=== PATIENT | female | born 1970 | race Caucasian/White ===

== ENCOUNTER 2022-06-23 12:52 | Outpatient (AMB) | payer OTHER, SELFPAY ==
--- NOTE | 2022-06-23 13:19 | A.OFFPC_ITS ---
Vital Signs 06/23/22 13:21 Height 5 ft 4 in Weight 140 lb 4 oz BMI 24.0 BP 112/68 Blood Pressure Location Rt brachial Position Sitting Pulse 70 Pulse Source Pulse Oximeter Intake Visit Reasons: Annual Physicial Intake Note: Pt is here for her annual physical exam. Allergies No Known Allergies Allergy (Verified 06/27/23 13:18) Medication List - Last Reconciled 06/23/22 by Milly Burk MD No Known Home Meds Tobacco use date assessed: 06/23/22 HPI Annual Physicial HPI Details 51 year old lady , new to practice , he re for a physical exam , Has no known medical history PFSH Medical History Colon cancer screening Post-COVID chronic cough Recurrent unproductive cough Former cigarette smoker Immunization refused Surgical History No pertinent past surgical history Family History Father Lung cancer Cancer of kidney Mother Cancer of kidney Coronary artery disease S/P CABG x 4 HTN (hypertension) Hyperlipidemia COPD (chronic obstructive pulmonary disease) Substance use disorder Paternal Aunt History of breast cancer Social History Housing: House Alcohol intake: current Alcohol intake frequency: a few times a month Patient Tobacco Use Status: Former Tobacco user Tobacco use type: Cigarette Cigarette Packs Per Day: 1 Years Smoked: 12 e-Cigarette/Vaping Use: Never Used Current occupational status: unemployed Sexual orientation: Straight/Heterosexual Gender identity: Female Cognitive needs: No Hearing needs: No Vision needs: Yes Female Reproductive History Menstrual Date of last menstrual period: 06/16/21 Menopause type: natural Questionnaire PHQ-9 Over the last 2 weeks, how often have you been bothered by any of the following problems? 1. Little interest or pleasure in doing things: not at all 2. Feeling down, depressed, or hopeless: not at all 3. Trouble falling or staying asleep, or sleeping too much: not at all 4. Feeling tired or having little energy: not at all 5. Poor appetite or overeating: not at all 6. Feeling bad about yourself - or that you are a failure or have let yourself or your family down: not at all 7. Trouble concentrating on things, such as reading the newspaper or watching television: not at all 8. Moving or speaking so slowly that other people could have noticed. Or the opposite - being so fidgety or restless that you have been moving around a lot more than usual: not at all 9. Thoughts that you would be better off or of hurting yourself in some way: not at all Total score: 0 Depression Screening Interpretation: Negative 78868 - PHQ-9 Billing: Yes Source: Developed by Drs. Roel Carmona, Mara Hernandez, Isac Hanson and colleagues, with an educational dionne from [employer]. Thrive Questionnaire Declines Thrive assessment: No Date Thrive assessed: 06/23/22 I am a: Patient What is your living situation today?: I have a steady place to live Within the past 12 months, did the food you bought not last and you didn't have the money to get more?: Never true Within the past 12 months, did you worry whether your food would run out before you got money to buy more?: Never true Do you have trouble paying for medicines?: No Do you have trouble getting transportation to medical appointments?: No Do you have trouble paying your heating and electricity bill?: Yes Do you have trouble taking care of your child, family member or friend?: No Do you have trouble with day-to-day activities such as bathing, preparing meals, shopping, managing finances, etc.?: No Are you currently unemployed and looking for a job?: Yes Are you interested in more education?: Yes AUDIT C Alcohol Use Questionnaire (AUDIT-C) 1. How often do you have a drink containing alcohol?: Monthly or less 2. How many drinks containing alcohol do you have on a typical day when you are drinking?: 1 or 2 3. How often do you have six or more drinks on one occasion?: Never Total Score: 1 Score Reviewed/Action Taken: Yes JEFFERSON-7 AMB Questionnaire JEFFERSON-7 Date JEFFERSON - 7 assessed: 06/23/22 Feeling nervous, anxious, or on edge: 0 = Not at all Not being able to stop or control worryin = Not at all Worrying too much about different things: 0 = Not at all Trouble relaxin = Not at all Being so restless that it is hard to sit still: 0 = Not at all Becoming easily annoyed or irritable: 0 = Not at all Feeling afraid as if something awful might happen: 0 = Not at all Total JEFFERSON-7 score (0-4 normal; 5-9 mild; 10-14 moderate; 15-21 severe): 0 Source: Developed by Drs. Roel Carmona, Mara Hernandez, Isac Hanson and colleagues, with an educational dionne from [employer]. JEFFERSON-7 Assessment Billing JEFFERSON-7 Assessment Tool: JEFFERSON-7 Assessment 57458 Review of Systems Const Denies body aches, Denies fatigue, Denies fever(s), Denies headache(s) and Denies weakness Eyes Denies change in vision, Denies eye discharge and Denies itchy eyes ENT Denies dizziness, Denies headache(s), Denies nasal congestion, Denies nasal discharge and Denies sore throat Card Denies chest pain, Denies lightheadedness, Denies palpitations and Denies dyspnea Resp Denies chest congestion, Denies cough, Denies dyspnea and Denies wheezing GI Denies abdominal pain, Denies change in bowel habits and Denies heartburn Denies hematuria, Denies urinary frequency, Denies dysuria and Denies urinary urgency Skin/Breast Denies breast pain, Denies breast mass, Denies lesions and Denies rash Neuro Denies dizziness, Denies headache(s) and Denies weakness Endo Denies fatigue, Denies polydipsia, Denies polyuria and Denies palpitations Rip/Lymph Denies easy bruising Aller/Immun Denies itchy eyes, Denies seasonal rhinorrhea and Denies wheezing Physical exam (Primary Care) Vital Signs: Last Vital Signs Pulse 70 06/23/22 13:21 BP 112/68 06/23/22 13:21 BMI result Body Mass Index 24.0 Tobacco/Smoking Status: Tobacco use Status Tobacco use date assessed 06/23/22 06/23/22 13:25 Patient Tobacco Use Status Former Tobacco user 06/23/22 14:18 Tobacco use type Cigarette 06/23/22 14:18 e-Cigarette/Vaping Use Never Used 06/23/22 14:18 PHQ-9: PHQ-9 Score PHQ-9: Total score 0 05/20/25 00:20 Depression Screening Interpretation: Negative Thrive Assessment: Date of Thrive Assessment Date Thrive assessed 06/23/22 06/23/22 13:26 Coding Level of Care Code Admin Sign Off/No Billing Diagnoses Former cigarette smoker Z87.891 Recurrent unproductive cough R05.8 Post-COVID chronic cough R05.3; U09.9 Advanced directives, counseling/discussion Z71.89 Adult general medical exam Z00.00 Cervical cancer screening Z12.4 Hx of abnormal cervical Pap smear Z87.42 Colon cancer screening Z12.11 Immunization refused Z28.21 Additional Codes JEFFERSON-7 Assessment Billing - JEFFERSON-7 Assessment Tool: JEFFERSON-7 Assessment [id number] ([id number])
[2022-06-23 13:21] VITALS: BP 112/68; PULSE 70; BMI 24.0
== END 2022-06-23 14:37 | disposition home or self-care (01) ==
LOC: HO.HMGC 12:52
PROVIDERS: PCP Internal Medicine; Visit Provider Internal Medicine
DX: Z87.891 Personal history of nicotine dependence (principal); R05.8 Other specified cough; R05.3 Chronic cough; U09.9 Post COVID-19 condition, unspecified; Z71.89 Other specified counseling; Z00.00 Encounter for general adult medical examination without abnormal findings; Z12.4 Encounter for screening for malignant neoplasm of cervix; Z87.42 Personal history of other diseases of the female genital tract; Z12.11 Encounter for screening for malignant neoplasm of colon; Z28.21 Immunization not carried out because of patient refusal
CPT/HCPCS: 99499

== ENCOUNTER 2022-12-28 14:43 | Outpatient (AMB) | payer OTHER, SELFPAY ==
--- NOTE | 2022-12-28 14:46 | MHC.OFFVIS ---
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 Scribed for PEARL Lopez by Luh Hanson certified medical technician assistant, on 12/28/2022 at 3:08 pm EST. Broadcast Maintenance Engineer: Broadcast Maintenance Engineer Present (Selene) Allergies No Known Allergies Allergy (Verified 12/28/22 14:47) HPI HPI Comments History of Present Illness Details She is a new patient postmenopausal woman presenting for annual exam. 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 Patient admits she tries to eat a healthy diet including Calcium and Vitamin D. She stays active with work. Reports weight gain due to ceasing of smoking. Currently not sexually active. Reports pain/dryness during last sexual encounter with . No menses over a year ago. Denies vaginal itching and irritation. Denies family hx of colon and ovarian cancer. Last pap smear 12+ years ago per pt. Reports not having a mammogram per pt. Not UTD on colonoscopy. [facility] Medical History Colon cancer screening Post-COVID chronic cough Recurrent unproductive cough Former cigarette smoker Immunization refused Surgical History No pertinent past surgical history Family History Father Lung cancer Cancer of kidney Mother Cancer of kidney Coronary artery disease S/P CABG x 4 HTN (hypertension) Hyperlipidemia COPD (chronic obstructive pulmonary disease) Paternal Aunt History of breast cancer Social History Housing: House Alcohol intake: current Alcohol intake frequency: a few times a month Patient Tobacco Use Status: Former Tobacco user Quit Date: 04/2019 Tobacco use type: Cigarette Cigarette Packs Per Day: 1 Years Smoked: 12 e-Cigarette/Vaping Use: Never Used Current occupational status: unemployed Sexual orientation: Straight/Heterosexual Gender identity: Female Cognitive needs: No Hearing needs: No Vision needs: Yes Female Reproductive History Menstrual Menopause type: natural Total pregnancies: 1 Ab spontaneous: 1 Physical Exam Vital Signs: Last Vital Signs BP 110/62 12/28/22 14:47 BMI result Body Mass Index 23.7 Const General: cooperative, healthy appearing, no acute distress, well developed and alert Orientation/consciousness: patient oriented x3 HEENT Head: Yes normal to inspection Eyes General: appearance normal, both eyes and all related structures Neck Neck: Yes normal visual inspection Thyroid: Thyroid normal Chest Chest palpation & inspection: normal inspection of the chest Breast/axilla inspection: normal inspection of the breasts (no puckering, dimpling, peau de orange, retraction, discharge, masses) Breast/axilla palpation: normal palpation of the breasts Resp Effort & Inspection: normal respiratory effort GI Inspection: Yes normal to inspection Palpation (GI): Soft to palpation (to palpation) Rectal Exam - Female: deferred General: Yes bladder normal to inspection External Female Exam: normal external appearance and normal appearance of the urethra Speculum Exam - Vagina: normal appearance of the vagina, normal palpation and vagina atrophic Speculum Exam - Cervix: normal appearance of the cervix and normal palpation Bimanual exam- vagina & uterus: normal palpation and normal palpation Bimanual Exam- Adnexa, other: normal adnexae and no masses Skin General skin exam: no rashes or lesions noted Neuro General: patient oriented x3 Cognition (Neuro): normal cognition Extrem General: Yes normal to inspection Psych Attitude: cooperative Thought process: Normal thought process present Assessment & Plan Assessment & Plan (1) Encounter for well woman exam: Code(s): Z01.419 - Encounter for gynecological examination (general) (routine) without abnormal findings Plan: Discussed: Current recommendations for pap smears per ASCCP guidelines. Breast awareness and periodic self breast exams. Encouraged yearly mammograms. Maintaining a healthy lifestyle including a well balanced diet including Calcium and Vitamin D and routine exercise. Encouraged patient to sign up for patient portal. Contact office with any PMB. All of her questions and concerns were addressed to the best of my ability. RTO in 1 year for AG. (2) Dyspareunia, female: Code(s): N94.10 - Unspecified dyspareunia Plan: Recommend Replens, [place] jelly, Astroglide or coconut oil for vaginal dryness. (3) Menopausal vaginal dryness: Code(s): N95.1 - Menopausal and female climacteric states Orders: Orders Pap Smear Today Z01.419 - Encounter for gynecological examination (general) (routine) without abnormal findings Coding Level of Care Code New Pt Prev Care 40-64y(11954) Diagnoses Encounter for well woman exam Z01.419 Dyspareunia, female N94.10 Menopausal vaginal dryness N95.1
[2022-12-28 14:47] VITALS: BP 110/62; BMI 23.7
== END 2022-12-28 15:26 | disposition home or self-care (01) ==
PROVIDERS: Visit Provider Advanced Practice Midwife
DX: Z01.419 Encounter for gynecological examination (general) (routine) without abnormal findings (principal); N94.10 Unspecified dyspareunia; N95.1 Menopausal and female climacteric states
CPT/HCPCS: 99386

== ENCOUNTER 2022-12-28 14:43 | Outpatient (REF) | payer OTHER, SELFPAY ==
[2023-01-01 03:34] LABS: HPV mRNA E6/E7 rflx Not Detected (Not Detected)
== END 2022-12-28 14:44 | disposition home or self-care (01) ==
LOC: HO.LNP 14:43
PROVIDERS: Visit Provider Advanced Practice Midwife
DX: Z01.419 Encounter for gynecological examination (general) (routine) without abnormal findings (principal); Z11.51 Encounter for screening for human papillomavirus (HPV)
CPT/HCPCS: 87624; 88142

== ENCOUNTER 2023-06-27 12:44 | Outpatient (AMB) | payer OTHER, SELFPAY ==
[2023-06-27 12:59] VITALS: BP 96/62; PULSE 67; O2SAT 97; BMI 23.9
--- NOTE | 2023-06-27 12:59 | A.OFFPC_ITS ---
Vital Signs 06/27/23 12:59 Height 5 ft 4 in Weight 139 lb BMI 23.9 BP 96/62 Blood Pressure Location Lt brachial Position Sitting Pulse 67 Pulse Source Pulse Oximeter Pulse Oximetry (%) 97 Oxygen Delivery Method Room Air Intake Visit Reasons: PE Intake Note: Pt is here today for PE. Allergies No Known Allergies Allergy (Verified 06/27/23 13:18) Medication List - Last Reconciled 06/27/23 by Gretel Marsh MD No Known Home Meds Tobacco use date assessed: 06/27/23 Dental Screening Dental Screen Date: 06/27/23 Did you have a dental visit in the last 12 months?: Yes Did you have a dental problem in the last 6 months where you did not have access to dental care?: No Was dental information given to patient?: Patient has dentist HPI PE HPI Details Pt presents for PE. Pt c/o persistent cough with white sputum worse at night after tested positive for Covid 3 weeks ago. Pt has been using Albuterol inhaler before night with same relief. She denies pleurisy, fever, night sweats. Pt had similar symptoms last year. COUNT INCLUDES [facility] Medical History Colon cancer screening Post-COVID chronic cough Recurrent unproductive cough Former cigarette smoker Immunization refused Surgical History No pertinent past surgical history Family History Father Lung cancer Cancer of kidney Mother Cancer of kidney Coronary artery disease S/P CABG x 4 HTN (hypertension) Hyperlipidemia COPD (chronic obstructive pulmonary disease) Substance use disorder Paternal Aunt History of breast cancer Social History Housing: House Alcohol intake: current Alcohol intake frequency: a few times a month Patient Tobacco Use Status: Former Tobacco user Quit Date: 04/2019 Tobacco use type: Cigarette Cigarette Packs Per Day: 1 Years Smoked: 12 e-Cigarette/Vaping Use: Never Used Current occupational status: unemployed Sexual orientation: Straight/Heterosexual Gender identity: Female Cognitive needs: No Hearing needs: No Vision needs: Yes Questionnaire PHQ-9 Over the last 2 weeks, how often have you been bothered by any of the following problems? 1. Little interest or pleasure in doing things: not at all 2. Feeling down, depressed, or hopeless: not at all 3. Trouble falling or staying asleep, or sleeping too much: not at all 4. Feeling tired or having little energy: not at all 5. Poor appetite or overeating: not at all 6. Feeling bad about yourself - or that you are a failure or have let yourself or your family down: not at all 7. Trouble concentrating on things, such as reading the newspaper or watching television: not at all 8. Moving or speaking so slowly that other people could have noticed. Or the opposite - being so fidgety or restless that you have been moving around a lot more than usual: not at all 9. Thoughts that you would be better off or of hurting yourself in some way: not at all Total score: 0 Depression Screening Interpretation: Negative Depression Screening Done: Yes Source: Developed by Drs. Roel Carmona, Mara Hernandez, Isca Hanson and colleagues, with an educational dionne from [employer]. Thrive Questionnaire Date Thrive assessed: 06/27/23 I am a: Patient What is your living situation today?: I have a steady place to live Within the past 12 months, did the food you bought not last and you didn't have the money to get more?: Never true Within the past 12 months, did you worry whether your food would run out before you got money to buy more?: Never true Do you have trouble paying for medicines?: No Do you have trouble getting transportation to medical appointments?: No Do you have trouble paying your heating and electricity bill?: Yes Do you have trouble taking care of your child, family member or friend?: No Do you have trouble with day-to-day activities such as bathing, preparing meals, shopping, managing finances, etc.?: No Are you currently unemployed and looking for a job?: No Are you interested in more education?: No Please select the resources that you would like help with: None THRIVE Score: 1 AUDIT C Alcohol Use Questionnaire (AUDIT-C) 1. How often do you have a drink containing alcohol?: Monthly or less 2. How many drinks containing alcohol do you have on a typical day when you are drinking?: 1 or 2 3. How often do you have six or more drinks on one occasion?: Never Total Score: 1 JEFFERSON-7 AMB Questionnaire JEFFERSON-7 Date JEFFERSON - 7 assessed: 06/27/23 Feeling nervous, anxious, or on edge: 0 = Not at all Not being able to stop or control worryin = Not at all Worrying too much about different things: 0 = Not at all Trouble relaxin = Not at all Being so restless that it is hard to sit still: 0 = Not at all Becoming easily annoyed or irritable: 0 = Not at all Feeling afraid as if something awful might happen: 0 = Not at all Total JEFFERSON-7 score (0-4 normal; 5-9 mild; 10-14 moderate; 15-21 severe): 0 Source: Developed by Drs. Roel Carmona, Mara Hernandez, Isac Hanson and colleagues, with an educational dionne from [employer]. Review of Systems Const All systems reviewed & are unremarkable except as noted in HPI and below Reports no additional complaints Eyes Reports no additional complaints ENT Reports no additional complaints Card Reports no additional complaints Resp Reports no additional complaints GI Reports no additional complaints Reports no additional complaints Physical exam (Primary Care) Vital Signs: Last Vital Signs Pulse 67 06/27/23 12:59 BP 96/62 06/27/23 12:59 Pulse Ox 97 06/27/23 12:59 Oxygen Delivery Method Room Air 06/27/23 12:59 BMI result Body Mass Index 23.9 Tobacco/Smoking Status: Tobacco use Status Tobacco use date assessed 06/27/23 06/27/23 13:21 Patient Tobacco Use Status Former Tobacco user 06/27/23 13:00 Tobacco use type Cigarette 06/27/23 13:00 e-Cigarette/Vaping Use Never Used 06/27/23 13:00 PHQ-9: PHQ-9 Score PHQ-9: Total score 0 06/27/23 13:24 Depression Screening Interpretation: Negative Thrive Assessment: Date of Thrive Assessment Date Thrive assessed 06/27/23 06/27/23 13:24 Const General: no acute distress HENMT Head: Yes normal to inspection Ears: hearing grossly normal bilaterally Face and sinus: Yes normal facial exam Eyes General: appearance normal, both eyes and all related structures Neck Neck: Yes no lymphadenopathy and Yes supple Resp Effort & Inspection: normal respiratory effort Auscultation: rhonchi throughout and wheezes scattered wheezes Cardio Rhythm: regular rhythm Heart sounds: S1 normal heart sound present and S2 normal heart sound present GI Inspection: Yes normal to inspection Palpation (GI): Soft to palpation Percussion: Yes normal to percussion Auscultation: normal bowel sounds Assessment and Plan Assessment & Plan (1) Normal pelvic exam: Comment: 01/08 [facility] nurse gynecology Code(s): Z01.419 - Encounter for gynecological examination (general) (routine) without abnormal findings (2) Mammogram declined: Comment: 07/09 Code(s): Z53.20 - Procedure and treatment not carried out because of patient's decision for unspecified reasons (3) Annual physical exam: Code(s): Z00.00 - Encounter for general adult medical examination without abnormal findings Plan: Well-balanced diet regular physical activity discussed with the patient. She will return for fasting blood work (4) Bronchitis: Code(s): J40 - Bronchitis, not specified as acute or chronic Plan: For postviral bronchitis Z-Thomas as prescribed patient will continue albuterol and was advised to use expectorant if the symptoms persist she was advised to return for follow-up visit. PFTs will be rescheduled Orders: Orders Complete Blood Count Auto Diff Today Z00.00 - Encounter for general adult medical examination without abnormal findings TSH reflex Free T4 Today Z00.00 - Encounter for general adult medical examination without abnormal findings PFT pulmonary function test Today Comprehensive [place]. Panel Fast Today Z00.00 - Encounter for general adult medical examination without abnormal findings Lipid Panel Today Z00.00 - Encounter for general adult medical examination without abnormal findings UA w Microscopic Today Z00.00 - Encounter for general adult medical examination without abnormal findings Referrals Cologuard Test Z12.11 - Encounter for screening for malignant neoplasm of colon, Z12.12 - Encounter for screening for malignant neoplasm of rectum Medications: New azithromycin For 250 mg dose pack: take 500 mg today (day 1), then 250 mg for 4 days (days 2-5) PO 6 tabs 0RF albuterol sulfate 90 mcg/actuation 2 puffs inhalation Q6H PRN 8.5 grams 1RF shortness of breath or wheezing Coding Level of Care Code Est Pt Prev Care 40-64y(40955) Diagnoses Normal pelvic exam Z01.419 Mammogram declined Z53.20 Annual physical exam Z00.00 Bronchitis J40
== END 2023-06-27 14:30 | disposition home or self-care (01) ==
PROVIDERS: PCP Internal Medicine; Visit Provider Internal Medicine
DX: Z01.419 Encounter for gynecological examination (general) (routine) without abnormal findings (principal); Z53.20 Procedure and treatment not carried out because of patient's decision for unspecified reasons; Z00.00 Encounter for general adult medical examination without abnormal findings; J40 Bronchitis, not specified as acute or chronic
CPT/HCPCS: 99396